=== PATIENT | female | born 1970 | race Caucasian/White ===

== ENCOUNTER 2024-11-28 22:55 | Emergency (ER) | payer SELFPAY ==
[~2024-11-28] VITALS: Ht 165.1 cm; Wt 69.9 kg
[~2024-11-28 22:55] MED LIST: B-121000 MCG PO; BACTRIM DS TAB1 EACH; CLINDAMYCIN HC150 MG; FERROUS SULFAT325 MG PO; FOLIC ACID1 MG PO; MUPIROCIN22 GM; PREDNISONE10 MG PO; PRILOSEC40 MG PO; PROTONIX40 MG/ML PO; VENTOLIN HFA18 GM HHN; VICODIN 5-5001 EACH PO
[2024-11-28 23:22] VITALS: TEMP 97.2
[2024-11-29 00:57] LABS: BASOPHILS % 1.2 % (0.0-1.0); EOSINOPHILS % 4.7 % (0.0-6.0); LYMPHOCYTES % 55.1 % (18.0-39.1); MONOCYTES % 7.7 % (4.4-11.3); NEUTROPHILS % 31.0 % (38.7-80.0); RED CELL DISTRIBUTION WIDTH 14.0 % (11.7-14.4)
[2024-11-29 01:07] LABS: AMPHETAMINES SCREEN,URINE NEGATIVE (NEGATIVE); CANNABINOIDS SCREEN,URINE NEGATIVE (NEGATIVE); COCAINE SCREEN,URINE NEGATIVE (NEGATIVE); LEUKOCYTE ESTERASE ,URINE NEGATIVE (NEGATIVE); METHADONE SCREEN, URINE NEGATIVE (NEGATIVE); OPIATES SCREEN,URINE NEGATIVE (NEGATIVE); PROTEIN,URINE DIPSTICK NEGATIVE (NEGATIVE); URINE UROBILINOGEN 0.2 mg/dL (0.2 - 1)
[2024-11-29 01:15] VITALS: PULSE 90; RESP 17
[2024-11-29 01:21] LABS: EST GLOMERULAR FILTRATION RATE 88.0 ML/MIN (>=60)
[2024-11-29 01:37] LABS: WBC,URINE (MAN) 0-5 /HPF (0-5)
[2024-11-29 01:38] LABS: EPITHELIAL CELLS,URINE FEW /LPF
[2024-11-29 01:41] LABS: ETHANOL 256.4 mg/dL (0.0-10.0)
[2024-11-29 02:27] VITALS: BP 140/88; O2SAT 96
== END 2024-11-29 02:02 | disposition home or self-care (01) ==
LOC: ER 11-29 00:05
DX: R51.9 Headache, unspecified (principal); R07.89 Other chest pain; F10.129 Alcohol abuse with intoxication, unspecified; K21.9 Gastro-esophageal reflux disease without esophagitis
CPT/HCPCS: 36415; 70450; 71045; 80053; 80307; 80320; 81001; 83690; 84484; 85025; 93005; 99284

== ENCOUNTER 2025-01-31 10:51 | Emergency (ER) | payer SELFPAY ==
[~2025-01-31] VITALS: Ht 165.1 cm; Wt 69.9 kg
[2025-01-31 11:25] VITALS: PULSE 106; RESP 18; TEMP 97.6
[2025-01-31] MEDS ORDERED: SODIUM CHLORIDE FLUSH 10 ML SYR IV PRN (12:00)
[2025-01-31] MEDS ORDERED: IOPAMIDOL 370 MG/ML 100 ML INFUS..BTL INJ ONE (12:35)
[2025-01-31 12:57] LABS: BASOPHILS % 1.0 % (0.0-1.0); EOSINOPHILS % 4.2 % (0.0-6.0); LYMPHOCYTES % 47.8 % (18.0-39.1); MONOCYTES % 6.1 % (4.4-11.3); NEUTROPHILS % 40.6 % (38.7-80.0); RED CELL DISTRIBUTION WIDTH 13.9 % (11.7-14.4)
[2025-01-31 13:14] VITALS: PULSE 95; RESP 19; O2SAT 96
[2025-01-31] MEDS: ALBUTEROL/IPRATROPIUM 3 ML NEB NEB ONE (13:14)
[2025-01-31 13:37] LABS: EST GLOMERULAR FILTRATION RATE 81.0 ML/MIN (>=60)
[2025-01-31] MEDS: TRAMADOL HCL 50 MG TAB PO ONE (14:00)
[2025-01-31] MEDS: METHYLPREDNISOLONE SOD SUCC 125 MG/2ML VIAL IV ONE (14:01)
[2025-01-31] MEDS ORDERED: LEVOFLOXACIN750 MG PO (14:15)
[2025-01-31] MEDS ORDERED: PREDNISONE50 MG PO (14:15)
[2025-01-31 15:26] VITALS: BP 123/71; PULSE 97; RESP 20; O2SAT 100
== END 2025-01-31 14:45 | disposition home or self-care (01) ==
LOC: ER 11:18
DX: R06.00 Dyspnea, unspecified (principal); J44.1 Chronic obstructive pulmonary disease with (acute) exacerbation; I10 Essential (primary) hypertension; R73.03 Prediabetes; K21.9 Gastro-esophageal reflux disease without esophagitis
CPT/HCPCS: 36415; 71260; 80053; 83880; 84484; 85025; 85379; 93005; 94760; 94799; 99284; J2919; Q9967